=== PATIENT | female | born 1990 | race African-American/Black ===

== ENCOUNTER 2019-07-13 12:32 | Inpatient (IN) ==
[2019-07-13 14:12] LABS: Basophils % 0.2 % (0.0-0.8); Hematocrit 45.5 VOL% (35.7-47.0); Hemoglobin 14.9 GM/DL (12.0-16.0); Lymphocytes # 1.4 10*3/uL (1.4-4.0); Mean Corpuscular HGB Conc 32.7 GM/DL (32-36); Mean Corpuscular Volume 84.4 FL (87-102); Mean Platelet Volume 10.9 FL (9.6-12.0); Monocytes % 5.1 % (1.7-12.7); Neutrophils % 70.7 % (38.7-73.9); Platelet Count 299 T/CUMM (130-400); Red Blood Count 5.39 MC/CUMM (3.8-5.5); Red Cell Distribution Width 13.2 % (9.3-17.3); White Blood Count 5.7 T/CUMM (4-12)
[2019-07-13 14:31] LABS: Albumin 3.7 G/DL (3.4-5.0); Bilirubin,Total 0.6 MG/DL (0.2-1.0); Calcium 8.9 MG/DL (8.5-10.1); Osmolality,Calculated 271.8 MOS/KG (273-304)
[2019-07-13] MEDS ORDERED: ALBUTEROL NEB SOLN 5 MG/ML 20 ML/BOTTLE CONT NEB STA (14:55)
[2019-07-13] MEDS ORDERED: LEVOFLOXACIN INJ 500 MG in PREMIX 1 EACH IV STA (14:55)
[2019-07-13] MEDS ORDERED: methylPREDNISolone SOD SUC 125 MG/2 ML VIAL IV STA (14:55)
[2019-07-13] MEDS ORDERED: SODIUM CHLORIDE 0.9% 1,000 ML IV STA (14:57)
[2019-07-13] MEDS ORDERED: NICOTINE 21 MG/24 HR PATCH TRANSDERM PRN (17:49)
[2019-07-13] MEDS ORDERED: ONDANSETRON 4 MG/2 ML VIAL IV PRN (17:49)
[2019-07-13] MEDS: ALBUTEROL/IPRATROPIUM 3 ML NEB RESP TX SCH (19:10)
[2019-07-13] MEDS: BENZONATATE 100 MG CAPSULE PO SCH (21:06)
[2019-07-13] MEDS: ACETAMINOPHEN 325 MG TABLET PO PRN (21:07)
[2019-07-13] MEDS: ENOXAPARIN 40 MG/0.4 ML SYRINGE SUBCUT SCH (21:07)
[2019-07-14] MEDS: ALBUTEROL/IPRATROPIUM 3 ML NEB RESP TX SCH ×4 (00:25→19:41)
[2019-07-14 05:10] LABS: Hematocrit 40.1 VOL% (35.7-47.0); Hemoglobin 12.9 GM/DL (12.0-16.0); Immature Granulocytes % 0.6 %; Immature Granulocytes Absolute 0.03 #; Lymphocytes % 21.1 % (21.3-54.2); Mean Corpuscular HGB Conc 32.2 GM/DL (32-36); Mean Corpuscular Volume 85.3 FL (87-102); Mean Platelet Volume 10.8 FL (9.6-12.0); Monocytes % 3.5 % (1.7-12.7); Neutrophils % 74.8 % (38.7-73.9); Platelet Count 264 T/CUMM (130-400); Red Cell Distribution Width 13.1 % (9.3-17.3); White Blood Count 4.9 T/CUMM (4-12)
[2019-07-14 05:35] LABS: Band Neutrophils 2 % (0-10); Hypochromasia 1+; Lymphocytes 18 % (20-55); Microcytosis Slight; Segmented Neutrophils 79 % (50-85); Total Cells Counted 100
[2019-07-14 05:36] LABS: Calcium 8.6 MG/DL (8.5-10.1); Osmolality,Calculated 274.7 MOS/KG (273-304); Platelet Estimate Normal
[2019-07-14] MEDS: BENZONATATE 100 MG CAPSULE PO SCH ×3 (09:07→21:06)
[2019-07-14] MEDS: PANTOPRAZOLE 40 MG TABLET PO SCH (09:07)
[2019-07-14] MEDS: LEVOFLOXACIN INJ 750 MG in PREMIX 1 EACH IV SCH (09:07)
[2019-07-14] MEDS: ACETAMINOPHEN 325 MG TABLET PO PRN ×3 (09:15→17:16)
[2019-07-14 10:58] LABS: ABG Base Excess -0.6 MMOL/L (-2.5-2.5); ABG HCO3 23.9 MMOL/L (20-26); ABG Oxygen Saturation 98.5 % (95-100); ABG PCO2 31.3 MM HG (35-48); ABG TCO2 19.4 MMOL/L (23-27); Allen Test Positive
[2019-07-14] MEDS ORDERED: SODIUM CHLORIDE 0.9% 500 ML IV ONE (11:22)
[2019-07-14] MEDS ORDERED: FUROSEMIDE 40 MG/4 ML VIAL IV ONE (12:00)
[2019-07-14] MEDS: methylPREDNISolone SOD SUC 125 MG/2 ML VIAL IV SCH ×2 (13:55→21:06)
[2019-07-14 18:24] LABS: Apearance,Urine CLEAR (Clear); Bilirubin,Urine Negative (Negative); Blood, Urine Negative (Negative); Glucose,Urine (UA) Negative (Negative); Ketones,Urine Negative (Negative); Mucus,Urine Occasional /LPF (Occasional); Nitrite,Urine Negative (Negative); Protein,Urine Negative; RBC,Urine <1 /HPF (0-4); Squamous Epithelial Cell,Urine Occasional /HPF (0-10); Urine Color Colorless (Yellow); Urine Specific Gravity 1.009 (1.001-1.035); Urine Urobilinogen < 2.0 EU/DL (0.2-1.0); WBC,Urine 1 /HPF (0-6)
[2019-07-14] MEDS: ENOXAPARIN 40 MG/0.4 ML SYRINGE SUBCUT SCH (21:06)
[2019-07-14] MEDS ORDERED: MELATONIN 3 MG TABLET PO PRN (21:14)
[2019-07-15] MEDS: ALBUTEROL/IPRATROPIUM 3 ML NEB RESP TX SCH ×2 (01:55→07:30)
[2019-07-15 05:08] LABS: Hematocrit 39.5 VOL% (35.7-47.0); Hemoglobin 12.8 GM/DL (12.0-16.0); Immature Granulocytes % 0.5 %; Immature Granulocytes Absolute 0.04 #; Lymphocytes # 1.1 10*3/uL (1.4-4.0); Lymphocytes % 13.1 % (21.3-54.2); Mean Corpuscular HGB Conc 32.4 GM/DL (32-36); Mean Corpuscular Volume 84.8 FL (87-102); Mean Platelet Volume 11.3 FL (9.6-12.0); Monocytes % 1.5 % (1.7-12.7); Neutrophils % 84.9 % (38.7-73.9); Platelet Count 274 T/CUMM (130-400); Red Blood Count 4.66 MC/CUMM (3.8-5.5); Red Cell Distribution Width 13.2 % (9.3-17.3); White Blood Count 8.2 T/CUMM (4-12)
[2019-07-15 05:26] LABS: Calcium 8.5 MG/DL (8.5-10.1); Osmolality,Calculated 274.7 MOS/KG (273-304)
[2019-07-15] MEDS: methylPREDNISolone SOD SUC 125 MG/2 ML VIAL IV SCH (05:26)
[2019-07-15] MEDS: LEVOFLOXACIN INJ 750 MG in PREMIX 1 EACH IV SCH (09:01)
[2019-07-15] MEDS: ACETAMINOPHEN 325 MG TABLET PO PRN (09:02)
[2019-07-15] MEDS: PANTOPRAZOLE 40 MG TABLET PO SCH (09:02)
[2019-07-15] MEDS: BENZONATATE 100 MG CAPSULE PO SCH (09:02)
[2019-07-15 12:00] VITALS: BP 124/70
== END 2019-07-15 12:50 | disposition home or self-care (01) | DRG 145 ==
LOC: N.ED 12:32 → SUPCPDRO 15:57 → SUATTDRO 15:57 → N.EDINP 15:57 → N.2E 17:30
PROVIDERS: ADMIT Internal Medicine; ATTEND Family Medicine